=== PATIENT | female | born 1985 | race African-American/Black ===

== ENCOUNTER 2023-04-08 08:58 | Emergency (ER) | payer BC, SELFPAY ==
[2023-04-08 09:11] VITALS: BP 128/70; PULSE 88; RESP 16; TEMP 36.3; O2SAT 99
--- NOTE | 2023-04-08 09:15 | ED.SKABFB ---
HPI - Skin/Abscess/Foreign Bdy General Chief complaint: Skin/Abscess/Foreign Body Stated complaint: Sinus/Insect Bite Time Seen by Provider: 04/08/23 09:10 Source: patient Mode of arrival: ambulatory Limitations: no limitations History of Present Illness HPI narrative: Ms. Walton is a 37-year-old female patient presenting to the clinic today with complaints of an insect bite that is been on her left breast for 2 weeks. She reports that the area is very itchy and she has been applying triple antibiotic ointment without relief. 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 Related Data Home Medications Medication Instructions Recorded Confirmed norethindrone 1 mg-ethinyl 1 tablet PO DAILY 04/08/23 04/08/23 estradiol 20 mcg (21)-iron 75 mg (7) tablet ([place] Fe 11/29 (28)) Allergies Allergy/AdvReac Type Severity Reaction Status Date / Time No Known Allergies Allergy Verified 04/08/23 09:23 Review of Systems Review of Systems: Pertinent positives per HPI. Patient denies any fever, chills, headache, visual changes, dizziness, cough, runny nose, sore throat, shortness of breath, chest pain, palpitations, nausea, vomiting, diarrhea, constipation, abdominal pain, or any urinary issues. PMFSH Comments At the time of my signature, I reviewed and agree with the nursing past medical, surgical, social, and family history. There is no relevant family history pertinent to the patient complaint. Exam Narrative: General: Well-developed, well nourished, in no apparent distress Head: Normocephalic, atraumatic Eyes: Pupils equally round and reactive to light bilaterally, EOM intact, sclera and conjunctive clear, no discharge, lids normal Ears: TMs intact and clear, ear canals clear, no drainage, grossly hearing normal. Nose: Nares patent, clear discharge, no inflammation, no sinus tenderness. Mouth: Oropharynx without lesions or masses, good dentition, MMM. Postnasal drip Neck: Supple, trachea midline, no enlargement of anterior or posterior cervical nodes, no thyroid masses or goiter palpable. Breast: Left breast with small bump the size of a pencil eraser to the left lower breast at 5:00 with itching-no redness, drainage, or erythema noted Cardio: Regular rate and rhythm, s1 and s2 normal, no murmur appreciated. Resp: Clear to auscultation bilaterally anteriorly and posteriorly, no rhonchi, rales, wheezing or rubs Integumentary: [place], warm, and dry, intact without lesion, no rashes. Course Course Emergency Course: Portions of this record may have been created with voice recognition software. Level of Care: Express Care Visit Vital Signs Vital signs: Vital Signs Temperature 36.3 C L 04/08/23 09:11 Pulse Rate 88 04/08/23 09:11 Respiratory Rate 16 04/08/23 09:11 Blood Pressure 128/70 04/08/23 09:11 Pulse Oximetry 99 04/08/23 09:11 Oxygen Delivery Room Air 04/08/23 09:11 Temperature 36.3 C L 04/08/23 09:11 Pulse Rate 88 04/08/23 09:11 Respiratory Rate 16 04/08/23 09:11 Blood Pressure 128/70 04/08/23 09:11 Pulse Oximetry 99 04/08/23 09:11 Oxygen Delivery Room Air 04/08/23 09:11 Vital signs reviewed MDM - Skin/Abscess/Foreign Bdy MDM Narrative Medical decision making narrative: At the time of visit patient is resting on the exam table. I suspect she has a general allergic reaction from insect bite to her left lower breast. Prescription for triamcinolone cream was sent to the pharmacy. Also reports some sinus drainage. She has been taking Flonase recommend taking claritin or Zyrtec. Supportive measures were discussed with the patient she voiced understanding discharge instructions and agrees to treatment plan. Differential Diagnosis Differential diagnosis: Likely abscess of skin or subcutaneous tissue, cellulitis, eczema, insect bites and contact dermatitis Dis
== END 2023-04-08 09:30 | disposition home or self-care (01) ==
PROVIDERS: Emergency Provider Nurse Practitioner Family
DX: S20.162A Insect bite (nonvenomous) of breast, left breast, initial encounter (principal); W57.XXXA Bitten or stung by nonvenomous insect and other nonvenomous arthropods, initial encounter; J30.2 Other seasonal allergic rhinitis
CPT/HCPCS: 99203; G0463